=== PATIENT | male | born 1955 | race Caucasian/White ===

== ENCOUNTER 2018-10-20 14:55 | Inpatient (IN) | payer MEDICARE ==
[2018-10-20] MEDS ORDERED: Acetaminophen 325 MG TAB PO PRN (22:10)
[2018-10-20] MEDS ORDERED: Bisacodyl 5 MG TAB PO PRN (22:10)
[2018-10-20] MEDS ORDERED: Dextrose 5% in Water 1,000 ML IV PRN (22:12)
[2018-10-20] MEDS ORDERED: Dextrose 50% Abboject 50 ML SYRINGE SLOW IVP PRN (22:12)
[2018-10-20] MEDS ORDERED: Senokot 8.6 MG TAB PO PRN (22:14)
[2018-10-21 05:04] LABS: #Basophils 0.1 thou/uL (0.0-0.2); #Eosinphils 0.3 thou/uL (0.0-0.7); #Lymphocytes 1.3 thou/uL (1.20-3.40); #Monocytes 0.7 thou/uL (0.11-0.59); #Neutrophils 4.6 thou/uL (1.40-6.50); %Basophils 1.3 % (0.0-1.0); %Eosinophils 3.7 % (0.0-10.0); %Lymphocytes 18.2 % (21.0-51.0); %Monocytes 9.5 % (0.0-10.0); %Neutrophils 67.2 % (42.0-75.0); Hemoglobin 8.9 g/dL (14.0-18.0); Mean Corpuscular HGB CONC 33.6 g/dL (32.0-36.0); Mean Corpuscular Hemoglobin 28.7 pg (27.0-31.0); Mean Corpuscular Volume 85.6 fL (78.0-98.0); Mean Platelet Volume 9.8 fL (7.4-10.4); Platelet Count 210 thou/uL (130-400); RBC Distribution Width 13.8 % (11.5-14.5); White Blood Cell (WBC) Count 6.8 thou/uL (4.8-10.8)
[2018-10-21 05:28] LABS: ALT (SGPT) 22 U/L (8-55); AST (SGOT) 31 U/L (5-34); Albumin 3.1 g/dL (3.4-4.8); Alkaline Phosphatase 197 U/L (40-150); Anion Gap 12 mmol/L (10-20); BUN (Urea Nitrogen) 14 mg/dL (8.4-25.7); Bilirubin, Total 0.7 mg/dL (0.2-1.2); Calc. Creatinine Clearance 57 mL/min (70-130); Carbon Dioxide 24 mmol/L (23-31); Chloride 110 mmol/L (98-107); Estimated GFR-MDRD 48; Glucose 92 mg/dL (80-115); Potassium 3.1 mmol/L (3.5-5.1); Protein, Total 6.1 g/dL (5.8-8.1); Sodium 143 mmol/L (136-145)
[2018-10-21] MEDS: Losartan Potassium 50 MG TAB PO SCH (09:47)
[2018-10-21] MEDS: Aspirin 81 mg Enteric Coated Tablet PO SCH (09:47)
[2018-10-21] MEDS: Clopidogrel Bisulfate 75 MG TAB PO SCH (09:47)
[2018-10-21] MEDS: metFORMIN XR 500 MG TAB PO SCH ×2 (09:47→17:36)
[2018-10-21] MEDS: Amlodipine 5 MG TAB PO SCH (09:47)
[2018-10-21] MEDS: Insulin Regular 300 UNITS/3 ML VIAL SC PRN (12:24)
[2018-10-21] MEDS: Atorvastatin Calcium 40 MG TAB PO SCH (21:00)
[2018-10-22] MEDS: metFORMIN XR 500 MG TAB PO SCH ×2 (08:18→18:11)
[2018-10-22] MEDS: Losartan Potassium 50 MG TAB PO SCH (08:18)
[2018-10-22] MEDS: Amlodipine 5 MG TAB PO SCH (08:18)
[2018-10-22] MEDS: Clopidogrel Bisulfate 75 MG TAB PO SCH (08:21)
[2018-10-22] MEDS: Aspirin 81 mg Enteric Coated Tablet PO SCH (08:21)
[2018-10-22] MEDS: Insulin Regular 300 UNITS/3 ML VIAL SC PRN (18:12)
[2018-10-22] MEDS ORDERED: Amlodipine 5 MG TAB PO SCH (18:45)
[2018-10-22] MEDS: Atorvastatin Calcium 40 MG TAB PO SCH (20:08)
[2018-10-23] MEDS: Amlodipine 5 MG TAB PO SCH ×2 (08:35→20:37)
[2018-10-23] MEDS: Losartan Potassium 50 MG TAB PO SCH (08:35)
[2018-10-23] MEDS: metFORMIN XR 500 MG TAB PO SCH (08:37)
[2018-10-23] MEDS: Clopidogrel Bisulfate 75 MG TAB PO SCH (08:37)
[2018-10-23] MEDS: Atorvastatin Calcium 40 MG TAB PO SCH (20:37)
--- NOTE | 2018-10-24 07:51 | HP ---
REASON FOR ADMISSION: Physical therapy, occupational therapy, and speech therapy required for recent CVA. HISTORY OF PRESENT ILLNESS: The patient is a 63-year-old white male, who was admitted to [facility] on 10/17/2018 after having a second CVA within the last approximately 30 days. He began having slurred speech, difficulty findings words, and confusion. In the emergency room, he was seen and evaluated, and diagnosed with new onset second CVA. The patient had a full workup in his previous hospitalization for causes of the CVA and was on aspirin. When he presented on his most recent admission, an MRI of the brain was performed, which showed an acute left frontal CVA consistent with his findings. He was seen by Neurology, who recommended the patient start on Plavix in addition to his baby aspirin and continue physical therapy, occupational therapy, and speech therapy. The patient did have some continued dysarthria and some difficulty with swallowing requiring further speech therapy. PAST MEDICAL HISTORY: 1. Recent CVA. 2. Diabetes mellitus, controlled. 3. Hypertension. 4. Deconditioning. 5. Global weakness. PAST SURGICAL HISTORY: No significant past surgical history. REVIEW OF SYSTEMS: The patient presently says he is having increased strength. No fevers, chills, or night sweats. No nausea, vomiting, or diarrhea. Appetite is good. He does report some coughing with swallowing clear liquids and he has been placed on a thickened liquid diet. The patient denies any URI like symptoms. No chest pain or shortness of breath. No dysuria, hematuria, or change in urinary frequency. No recent weight loss or weight gain. The patient denies any depression. PHYSICAL EXAMINATION: GENERAL: White male, alert and oriented x3, in obvious distress, obvious dysarthria during exam. VITAL SIGNS: Blood pressure 168/88, respiratory rate 16, pulse 82. HEENT: Atraumatic and normocephalic. Sclerae intact. Pupils are equal, round, and reactive to light and accommodation. Oropharynx, mucous membranes moist. No exudates, discharge, or lesions. NECK: Supple. No masses palpated. CHEST: Clear to auscultation bilaterally. HEART: Regular rate and rhythm. ABDOMEN: Soft, nontender, and nondistended. No masses were palpated. EXTREMITIES: Show no cyanosis, clubbing, or edema. NEUROLOGIC: The patient did have dysarthria, but was able to understand all speech, slight expressive aphasia. Gag reflex was intact. The patient's mood was appropriate. ASSESSMENT AND PLAN: 1. Status post recent frontal cerebrovascular accident with dysarthria and some swallowing difficulties. The patient will be admitted to swing bed therapy at [facility]. Continue physical therapy, occupational therapy, and speech therapy with aspiration precautions. 2. Diabetes mellitus. We will continue the patient on his metformin with Accu-Cheks q.a.c. and at bedtime. 3. Hypertension. His blood pressure has been slightly high, may try adjusting his medications if needed. 4. Disposition. Hopefully, the patient will have approximately 10 to 14 days of physical therapy, occupational therapy, and speech therapy. 5. His plan is to be discharged to home. He does have a son, who lives in the area. Job ID: [id number]
[2018-10-24] MEDS: Losartan Potassium 50 MG TAB PO SCH (08:31)
[2018-10-24] MEDS: Clopidogrel Bisulfate 75 MG TAB PO SCH (08:31)
[2018-10-24] MEDS: metFORMIN XR 500 MG TAB PO SCH (08:32)
[2018-10-24] MEDS: Amlodipine 5 MG TAB PO SCH ×2 (08:32→20:37)
[2018-10-24] MEDS: Insulin Regular 300 UNITS/3 ML VIAL SC PRN (13:16)
[2018-10-24] MEDS: Atorvastatin Calcium 40 MG TAB PO SCH (20:37)
[2018-10-25] MEDS: Losartan Potassium 50 MG TAB PO SCH (08:06)
[2018-10-25] MEDS: metFORMIN XR 500 MG TAB PO SCH (08:07)
[2018-10-25] MEDS: Clopidogrel Bisulfate 75 MG TAB PO SCH (08:07)
[2018-10-25] MEDS: Amlodipine 5 MG TAB PO SCH ×2 (08:07→20:56)
[2018-10-25] MEDS: Insulin Regular 300 UNITS/3 ML VIAL SC PRN (12:36)
[2018-10-25] MEDS: Atorvastatin Calcium 40 MG TAB PO SCH (21:02)
[2018-10-26 05:30] LABS: #Basophils 0.1 thou/uL (0.0-0.2); #Eosinphils 0.3 thou/uL (0.0-0.7); #Lymphocytes 1.6 thou/uL (1.20-3.40); #Monocytes 0.8 thou/uL (0.11-0.59); #Neutrophils 4.4 thou/uL (1.40-6.50); %Eosinophils 4.3 % (0.0-10.0); %Monocytes 10.7 % (0.0-10.0); Hemoglobin 8.9 g/dL (14.0-18.0); Mean Corpuscular HGB CONC 33.5 g/dL (32.0-36.0); Mean Corpuscular Hemoglobin 28.5 pg (27.0-31.0); Mean Platelet Volume 10.2 fL (7.4-10.4); Platelet Count 214 thou/uL (130-400); RBC Distribution Width 12.8 % (11.5-14.5); Red Blood Cell (RBC) Count 3.12 mill/uL (4.70-6.10); White Blood Cell (WBC) Count 7.2 thou/uL (4.8-10.8)
[2018-10-26 05:41] LABS: ALT (SGPT) 18 U/L (8-55); AST (SGOT) 27 U/L (5-34); Albumin 3.1 g/dL (3.4-4.8); Alkaline Phosphatase 217 U/L (40-150); Anion Gap 12 mmol/L (10-20); BUN (Urea Nitrogen) 16 mg/dL (8.4-25.7); Bilirubin, Total 0.6 mg/dL (0.2-1.2); Calc. Creatinine Clearance 54 mL/min (70-130); Calcium 9.2 mg/dL (7.8-10.44); Carbon Dioxide 27 mmol/L (23-31); Chloride 107 mmol/L (98-107); Estimated GFR-MDRD 45; Globulin 3.1 g/dL (2.4-3.5); Glucose 112 mg/dL (80-115); Protein, Total 6.2 g/dL (5.8-8.1); Sodium 143 mmol/L (136-145)
[2018-10-26] MEDS: Clopidogrel Bisulfate 75 MG TAB PO SCH (08:40)
[2018-10-26] MEDS: Amlodipine 5 MG TAB PO SCH ×2 (08:40→22:24)
[2018-10-26] MEDS: Losartan Potassium 50 MG TAB PO SCH (08:41)
[2018-10-26] MEDS: metFORMIN XR 500 MG TAB PO SCH (08:41)
[2018-10-26] MEDS: Insulin Regular 300 UNITS/3 ML VIAL SC PRN ×2 (14:29→19:14)
[2018-10-26] MEDS: Atorvastatin Calcium 40 MG TAB PO SCH (22:24)
[2018-10-27] MEDS: Amlodipine 5 MG TAB PO SCH ×2 (08:23→21:07)
[2018-10-27] MEDS: metFORMIN XR 500 MG TAB PO SCH (08:24)
[2018-10-27] MEDS: Losartan Potassium 50 MG TAB PO SCH (08:24)
[2018-10-27] MEDS: Clopidogrel Bisulfate 75 MG TAB PO SCH (08:24)
[2018-10-27] MEDS: Insulin Regular 300 UNITS/3 ML VIAL SC PRN ×3 (13:38→21:06)
[2018-10-27] MEDS: Atorvastatin Calcium 40 MG TAB PO SCH (21:08)
[2018-10-28] MEDS: Losartan Potassium 50 MG TAB PO SCH (08:24)
[2018-10-28] MEDS: Clopidogrel Bisulfate 75 MG TAB PO SCH (08:24)
[2018-10-28] MEDS: metFORMIN XR 500 MG TAB PO SCH (08:24)
[2018-10-28] MEDS: Amlodipine 5 MG TAB PO SCH ×2 (08:25→20:59)
[2018-10-28] MEDS: Insulin Regular 300 UNITS/3 ML VIAL SC PRN ×2 (12:31→17:58)
[2018-10-28] MEDS: Atorvastatin Calcium 40 MG TAB PO SCH (20:59)
[2018-10-29] MEDS: metFORMIN XR 500 MG TAB PO SCH (09:07)
[2018-10-29] MEDS: Losartan Potassium 50 MG TAB PO SCH (09:08)
[2018-10-29] MEDS: Amlodipine 5 MG TAB PO SCH ×2 (09:08→20:51)
[2018-10-29] MEDS: Clopidogrel Bisulfate 75 MG TAB PO SCH (09:08)
[2018-10-29] MEDS: Insulin Regular 300 UNITS/3 ML VIAL SC PRN ×2 (13:08→20:54)
[2018-10-29] MEDS: Atorvastatin Calcium 40 MG TAB PO SCH (20:51)
[2018-10-30] MEDS: Losartan Potassium 50 MG TAB PO SCH (08:40)
[2018-10-30] MEDS: Clopidogrel Bisulfate 75 MG TAB PO SCH (08:41)
[2018-10-30] MEDS: Amlodipine 5 MG TAB PO SCH ×2 (08:41→21:26)
[2018-10-30] MEDS: metFORMIN XR 500 MG TAB PO SCH (08:42)
[2018-10-30] MEDS: Insulin Regular 300 UNITS/3 ML VIAL SC PRN ×3 (08:43→18:09)
[2018-10-30] MEDS: Atorvastatin Calcium 40 MG TAB PO SCH (21:26)
[2018-10-31] MEDS: metFORMIN XR 500 MG TAB PO SCH (10:48)
[2018-10-31] MEDS: Clopidogrel Bisulfate 75 MG TAB PO SCH (10:49)
[2018-10-31] MEDS: Amlodipine 5 MG TAB PO SCH ×2 (10:49→20:31)
[2018-10-31] MEDS: Losartan Potassium 50 MG TAB PO SCH (10:50)
[2018-10-31] MEDS: Atorvastatin Calcium 40 MG TAB PO SCH (20:31)
[2018-10-31] MEDS: Insulin Regular 300 UNITS/3 ML VIAL SC PRN (20:41)
[2018-11-01] MEDS: metFORMIN XR 500 MG TAB PO SCH (09:56)
[2018-11-01] MEDS: Amlodipine 5 MG TAB PO SCH ×2 (09:56→21:10)
[2018-11-01] MEDS: Losartan Potassium 50 MG TAB PO SCH (09:57)
[2018-11-01] MEDS: Clopidogrel Bisulfate 75 MG TAB PO SCH (09:57)
[2018-11-01 13:11] VITALS: BMI 24.3
[2018-11-01] MEDS: Insulin Regular 300 UNITS/3 ML VIAL SC PRN (17:08)
[2018-11-01] MEDS: Atorvastatin Calcium 40 MG TAB PO SCH (21:12)
[2018-11-02] MEDS: metFORMIN XR 500 MG TAB PO SCH (09:17)
[2018-11-02] MEDS: Losartan Potassium 50 MG TAB PO SCH (09:18)
[2018-11-02] MEDS: Clopidogrel Bisulfate 75 MG TAB PO SCH (09:19)
[2018-11-02] MEDS: Amlodipine 5 MG TAB PO SCH ×2 (09:20→20:52)
[2018-11-02] MEDS: Insulin Regular 300 UNITS/3 ML VIAL SC PRN ×2 (13:05→18:17)
[2018-11-02] MEDS: Atorvastatin Calcium 40 MG TAB PO SCH (20:52)
[2018-11-03] MEDS: metFORMIN XR 500 MG TAB PO SCH (09:08)
[2018-11-03] MEDS: Amlodipine 5 MG TAB PO SCH ×2 (09:09→21:38)
[2018-11-03] MEDS: Losartan Potassium 50 MG TAB PO SCH (09:09)
[2018-11-03] MEDS: Clopidogrel Bisulfate 75 MG TAB PO SCH (09:09)
[2018-11-03] MEDS: Insulin Regular 300 UNITS/3 ML VIAL SC PRN ×3 (12:06→21:43)
[2018-11-03] MEDS: Atorvastatin Calcium 40 MG TAB PO SCH (21:38)
[2018-11-04 06:50] VITALS: BP 155/79; TEMP 98.2
[2018-11-04] MEDS: Losartan Potassium 50 MG TAB PO SCH (08:54)
[2018-11-04] MEDS: Clopidogrel Bisulfate 75 MG TAB PO SCH (08:54)
[2018-11-04] MEDS: Amlodipine 5 MG TAB PO SCH (08:54)
[2018-11-04] MEDS: metFORMIN XR 500 MG TAB PO SCH (08:54)
[2018-11-04] MEDS: Insulin Regular 300 UNITS/3 ML VIAL SC PRN (13:57)
== END 2018-11-04 17:00 | disposition home health service (06) | DRG 57 ==
LOC: BURMED 19:05
PROVIDERS: ADMIT Family Medicine; ATTEND Family Medicine
DX: I69.322 Dysarthria following cerebral infarction (principal); G81.90 Hemiplegia, unspecified affecting unspecified side; I69.391 Dysphagia following cerebral infarction; R13.10 Dysphagia, unspecified; I10 Essential (primary) hypertension; E11.9 Type 2 diabetes mellitus without complications; Z79.82 Long term (current) use of aspirin; Z79.84 Long term (current) use of oral hypoglycemic drugs
CPT/HCPCS: 36415; 36416; 80053; 85025; 87324; 87449; 90471; 90686; G0008; G8978-GP-CK; G8979-GP-CI; G8987-GO-CL; G8988-GO-CI; J1815

== ENCOUNTER 2018-12-22 09:26 | Emergency (ER) | payer MEDICARE ==
[2018-12-22 10:12] LABS: #Basophils 0.1 thou/uL (0.0-0.2); #Eosinphils 0.2 thou/uL (0.0-0.7); #Lymphocytes 1.1 thou/uL (1.20-3.40); #Monocytes 0.6 thou/uL (0.11-0.59); #Neutrophils 5.6 thou/uL (1.40-6.50); %Basophils 1.4 % (0.0-1.0); %Eosinophils 2.3 % (0.0-10.0); %Monocytes 7.7 % (0.0-10.0); %Neutrophils 73.5 % (42.0-75.0); Hemoglobin 7.7 g/dL (14.0-18.0); Mean Corpuscular HGB CONC 33.3 g/dL (32.0-36.0); Mean Corpuscular Hemoglobin 27.5 pg (27.0-31.0); Mean Corpuscular Volume 82.8 fL (78.0-98.0); Mean Platelet Volume 7.1 fL (7.4-10.4); Platelet Count 246 thou/uL (130-400); RBC Distribution Width 13.3 % (11.5-14.5); Red Blood Cell (RBC) Count 2.79 mill/uL (4.70-6.10); White Blood Cell (WBC) Count 7.6 thou/uL (4.8-10.8)
[2018-12-22 10:29] LABS: ALT (SGPT) 13 U/L (8-55); AST (SGOT) 21 U/L (5-34); Albumin 3.3 g/dL (3.4-4.8); Alkaline Phosphatase 164 U/L (40-150); Anion Gap 13 mmol/L (10-20); BUN (Urea Nitrogen) 15 mg/dL (8.4-25.7); Bilirubin, Total 0.7 mg/dL (0.2-1.2); Calc. Creatinine Clearance 0 mL/min (70-130); Calcium 9.1 mg/dL (7.8-10.44); Carbon Dioxide 27 mmol/L (23-31); Chloride 105 mmol/L (98-107); Estimated GFR-MDRD 41; Globulin 3.2 g/dL (2.4-3.5); Glucose 152 mg/dL (80-115); Potassium 3.1 mmol/L (3.5-5.1); Protein, Total 6.5 g/dL (5.8-8.1); Sodium 142 mmol/L (136-145)
[2018-12-22] MEDS ORDERED: Potassium Chloride 20 MEQ/100 ML PREMIX BAG ONE (10:45)
[2018-12-22] MEDS ORDERED: Potassium Chloride 20 MEQ TAB ONE (10:45)
== END 2018-12-22 10:59 | disposition home or self-care (01) ==
LOC: BURERS 09:26
DX: D64.9 Anemia, unspecified (principal); E11.9 Type 2 diabetes mellitus without complications; E78.5 Hyperlipidemia, unspecified; I10 Essential (primary) hypertension; Z86.73 Personal history of transient ischemic attack (TIA), and cerebral infarction without residual deficits; F17.220 Nicotine dependence, chewing tobacco, uncomplicated; Z79.84 Long term (current) use of oral hypoglycemic drugs; Z79.82 Long term (current) use of aspirin; Z79.899 Other long term (current) drug therapy
CPT/HCPCS: 36415; 80053; 82274; 84443; 84484; 85025; 86850; 86900; 86901; 99284; J3480

== ENCOUNTER 2019-02-01 14:30 | Emergency (ER) | payer MEDICARE ==
[2019-02-01 15:50] LABS: ALT (SGPT) 13 U/L (8-55); AST (SGOT) 23 U/L (5-34); Albumin 3.5 g/dL (3.4-4.8); Alkaline Phosphatase 173 U/L (40-150); Anion Gap 14 mmol/L (10-20); BUN (Urea Nitrogen) 15 mg/dL (8.4-25.7); Bilirubin, Total 0.7 mg/dL (0.2-1.2); Calc. Creatinine Clearance 0 mL/min (70-130); Calcium 8.9 mg/dL (7.8-10.44); Carbon Dioxide 26 mmol/L (23-31); Chloride 105 mmol/L (98-107); Estimated GFR-MDRD 44; Globulin 3.4 g/dL (2.4-3.5); Glucose 110 mg/dL (80-115); Potassium 3.2 mmol/L (3.5-5.1); Protein, Total 6.9 g/dL (5.8-8.1); Sodium 142 mmol/L (136-145)
[2019-02-01 15:51] LABS: Prothrombin Time 13.3 SEC (12.0-14.7)
[2019-02-01 16:07] LABS: #Basophils 0.1 thou/uL (0.0-0.2); #Eosinphils 0.1 thou/uL (0.0-0.7); #Lymphocytes 1.2 thou/uL (1.20-3.40); #Monocytes 0.7 thou/uL (0.11-0.59); #Neutrophils 5.4 thou/uL (1.40-6.50); %Basophils 1.5 % (0.0-1.0); %Eosinophils 1.2 % (0.0-10.0); %Lymphocytes 15.6 % (21.0-51.0); %Monocytes 9.1 % (0.0-10.0); %Neutrophils 72.6 % (42.0-75.0); Hemoglobin 6.8 g/dL (14.0-18.0); Hypochromia SLIGHT = 6-15 cells (100X) (0-5/hpf); MDiff Complete? YES; Mean Corpuscular HGB CONC 29.6 g/dL (32.0-36.0); Mean Corpuscular Hemoglobin 23.7 pg (27.0-31.0); Mean Corpuscular Volume 80.2 fL (78.0-98.0); Mean Platelet Volume 7.7 fL (7.4-10.4); Microcytosis SLIGHT = 6-15 cells (100X) (0-5/hpf); Platelet Count 197 thou/uL (130-400); RBC Distribution Width 15.1 % (11.5-14.5); Red Blood Cell (RBC) Count 2.85 mill/uL (4.70-6.10); White Blood Cell (WBC) Count 7.4 thou/uL (4.8-10.8)
[2019-02-01 18:34] LABS: Hemoglobin 7.7 g/dL (14.0-18.0)
== END 2019-02-01 18:53 | disposition home or self-care (01) ==
LOC: BURERS 14:30
DX: D64.9 Anemia, unspecified (principal); E11.9 Type 2 diabetes mellitus without complications; E78.5 Hyperlipidemia, unspecified; I10 Essential (primary) hypertension; Z86.73 Personal history of transient ischemic attack (TIA), and cerebral infarction without residual deficits; F17.220 Nicotine dependence, chewing tobacco, uncomplicated; Z79.899 Other long term (current) drug therapy; Z79.84 Long term (current) use of oral hypoglycemic drugs; Z79.82 Long term (current) use of aspirin
CPT/HCPCS: 36430; 85014; 85018; 85610; 85730; 86850; 86900; 86901; 86920; 86922; P9016; 80053; 84443; 85025; 99284

== ENCOUNTER 2019-03-27 13:01 | Emergency (ER) | payer MEDICARE ==
[2019-03-27 13:47] LABS: PTT 30.9 SEC (22.9-36.1); Prothrombin Time 13.7 SEC (12.0-14.7)
[2019-03-27 13:52] LABS: #Basophils 0.1 thou/uL (0.0-0.2); #Eosinphils 0.1 thou/uL (0.0-0.7); #Lymphocytes 2.1 thou/uL (1.20-3.40); #Monocytes 0.6 thou/uL (0.11-0.59); #Neutrophils 5.5 thou/uL (1.40-6.50); %Basophils 1.7 % (0.0-1.0); %Eosinophils 1.8 % (0.0-10.0); %Monocytes 7.3 % (0.0-10.0); %Neutrophils 64.3 % (42.0-75.0); Hemoglobin 8.1 g/dL (14.0-18.0); MDiff Complete? YES; Macrocytosis SLIGHT = 6-15 cells (100X) (0-5/hpf); Mean Corpuscular HGB CONC 30.5 g/dL (32.0-36.0); Mean Corpuscular Hemoglobin 28.1 pg (27.0-31.0); Mean Corpuscular Volume 92.3 fL (78.0-98.0); Mean Platelet Volume 8.8 fL (7.4-10.4); Microcytosis SLIGHT = 6-15 cells (100X) (0-5/hpf); Platelet Count 332 thou/uL (130-400); RBC Distribution Width 19.4 % (11.5-14.5); White Blood Cell (WBC) Count 8.5 thou/uL (4.8-10.8)
[2019-03-27 13:57] LABS: ALT (SGPT) 16 U/L (8-55); AST (SGOT) 22 U/L (5-34); Albumin 3.6 g/dL (3.4-4.8); Alkaline Phosphatase 164 U/L (40-150); Anion Gap 14 mmol/L (10-20); BUN (Urea Nitrogen) 24 mg/dL (8.4-25.7); Bilirubin, Total 0.6 mg/dL (0.2-1.2); Calc. Creatinine Clearance 0 mL/min (70-130); Calcium 9.5 mg/dL (7.8-10.44); Carbon Dioxide 23 mmol/L (23-31); Chloride 107 mmol/L (98-107); Estimated GFR-MDRD 33; Globulin 3.2 g/dL (2.4-3.5); Glucose 140 mg/dL (80-115); Potassium 4.6 mmol/L (3.5-5.1); Protein, Total 6.8 g/dL (5.8-8.1); Sodium 139 mmol/L (136-145)
--- NOTE | 2019-03-27 19:58 | RAD ---
PELVIS ONE VIEW: Date: 03-27-19 FINDINGS: No fracture was appreciated. The hips appear intact, as do the remaining portions of the bony pelvis. There is slight joint space narrowing on the left compared to the right. The SI joints were reasonab ly symmetrical. Arterial calcifications are present. IMPRESSION: No acute bony findings. POS: HOME
--- NOTE | 2019-03-27 20:07 | CT ---
CT BRAIN WITHOUT CONTRAST: Date: 03-27-19 Comparison: 03-10-19 FINDINGS: There has been no change in the interval. The ventricles are normal in size for age and atrophy. Ther e are profound chronic ischemic changes throughout the deep white matter bilaterally. There is eviden ce of an old central pontine infarct. Small lacunar infarct is seen in the region of the right internal communications intern al capsule and basal ganglia. No intracranial bleeding, mass, or sign of acute stroke was appreciated . Small acute strokes would be missed in this patient. There is no extraaxial hematoma. The skull onur ears intact and the visible paranasal sinuses and mastoid air cells are clear. IMPRESSION: Chronic ischemic changes and old stroke but no acute intracranial findings. Findings discussed with Dr. Amaya at 1336 on 03-27-19. POS: HOME
== END 2019-03-27 15:05 | disposition home or self-care (01) ==
LOC: BURERS 13:01
DX: M62.81 Muscle weakness (generalized) (principal); E11.9 Type 2 diabetes mellitus without complications; E78.5 Hyperlipidemia, unspecified; I10 Essential (primary) hypertension; R29.6 Repeated falls; Z86.73 Personal history of transient ischemic attack (TIA), and cerebral infarction without residual deficits; Z79.899 Other long term (current) drug therapy; Z79.82 Long term (current) use of aspirin; Z79.84 Long term (current) use of oral hypoglycemic drugs
CPT/HCPCS: 36415; 70450; 72170; 80053; 83605; 84484; 85025; 85610; 85730; 86850; 86900; 86901; 93005

== ENCOUNTER 2019-04-07 09:49 | Outpatient (CLI) | payer MEDICARE ==
--- NOTE | 2019-04-07 21:51 | CT ---
CT OF THE CHEST WITHOUT CONTRAST: 04/07/19 Comparison is made with an 10/18/18 study. Scans were done without contrast due to decreased renal fu nction. The mediastinum showed no mass or adenopathy. Calcifications are seen in the patient's aorta. There is no pericardial effusion. The lungs are generally clear. There is a small reticulonodular area in the superior portion of the l eft lower lobe as before. It has not really changed in the interval. There is also a smaller similar area in the lateral aspect of the right upper lobe. It also is the same in appearance. No effusions a re seen. An old healed rib fracture was noted on the left. This was present before. IMPRESSION: 1. No acute thoracic findings. 2. Minimal streaky reticular areas in the periphery of the right upper lobe and in the superior part of the left lower lobe. These are virtually unchanged in appearance since the prior scan and are presumably scarring. POS: HOME
--- NOTE | 2019-04-07 21:56 | CT ---
CT ABDOMEN AND PELVIS WITHOUT CONTRAST 04/07/[address] of the abdomen and pelvis was done without IV contrast. Axial slices were acquired, then co juan and sagittal reconstructions were done. The liver, spleen, pancreas, adrenal glands and kidneys showed no acute findings within the limitatio ns of a noncontrast scan. It is difficult to evaluate the gallbladder as it is slightly contracted. T his would be better seen on ultrasound. Some calcifications are seen in the aorta but there is no ane urysm. The stomach is moderately distended with fluid and the duodenum seems large as well. Looking at a [address] while slightly more prominent than before, these areas were larger than normal previously. Ther e is no distended bowel elsewhere to suggest obstruction. The appendix appears normal. No free air or free fluid was seen. CT of the pelvis showed no pelvic masses, fluid collections, or inflammatory changes. There is some degree of central canal stenosis at L2-L3, L3-L4 and L4-L5 in the lumbar spine. IMPRESSION: 1. Moderate distention of stomach and duodenal bulb. Nevertheless, it was somewhat dilated on an older CT. Correlate with clinical symptoms and consider endoscopy if symptoms dictate the need. 2. No acute findings otherwise. POS: HOME
== END 2019-04-07 09:50 | disposition home or self-care (01) ==
LOC: BURCT 09:49
PROVIDERS: ATTEND Family Medicine
DX: R63.4 Abnormal weight loss (principal); K31.89 Other diseases of stomach and duodenum
CPT/HCPCS: 71250; 74176

== ENCOUNTER 2019-05-01 14:25 | Emergency (ER) | payer MEDICARE | END 2019-05-01 15:30 | disposition home or self-care (01) | LOC: BURERS 14:25 | DX: I10 Essential (primary) hypertension (principal); E11.9 Type 2 diabetes mellitus without complications; E78.5 Hyperlipidemia, unspecified; Z86.73 Personal history of transient ischemic attack (TIA), and cerebral infarction without residual deficits; Z79.82 Long term (current) use of aspirin; Z79.899 Other long term (current) drug therapy | CPT/HCPCS: 99283 ==

== ENCOUNTER 2019-06-27 15:13 | Emergency (ER) | payer MEDICARE ==
[2019-06-27 15:46] LABS: #Basophils 0.1 thou/uL (0.0-0.2); #Eosinphils 0.1 thou/uL (0.0-0.7); #Lymphocytes 1.1 thou/uL (1.20-3.40); #Monocytes 0.5 thou/uL (0.11-0.59); #Neutrophils 4.1 thou/uL (1.40-6.50); %Basophils 1.4 % (0.0-1.0); %Lymphocytes 18.1 % (21.0-51.0); %Monocytes 8.8 % (0.0-10.0); %Neutrophils 69.7 % (42.0-75.0); Hemoglobin 10.5 g/dL (14.0-18.0); Mean Corpuscular HGB CONC 32.3 g/dL (32.0-36.0); Mean Corpuscular Hemoglobin 30.4 pg (27.0-31.0); Mean Corpuscular Volume 94.1 fL (78.0-98.0); Mean Platelet Volume 8.3 fL (7.4-10.4); Platelet Count 196 thou/uL (130-400); RBC Distribution Width 13.6 % (11.5-14.5); Red Blood Cell (RBC) Count 3.44 mill/uL (4.70-6.10); White Blood Cell (WBC) Count 5.9 thou/uL (4.8-10.8)
[2019-06-27 15:51] LABS: INR-International Normal Ratio 1.1; PTT 28.5 SEC (22.9-36.1); Prothrombin Time 13.7 SEC (12.0-14.7)
[2019-06-27 16:01] LABS: ALT (SGPT) 55 U/L (8-55); AST (SGOT) 46 U/L (5-34); Albumin 3.2 g/dL (3.4-4.8); Alkaline Phosphatase 175 U/L (40-150); Anion Gap 11 mmol/L (10-20); BUN (Urea Nitrogen) 36 mg/dL (8.4-25.7); Bilirubin, Total 0.6 mg/dL (0.2-1.2); Calc. Creatinine Clearance 0 mL/min (70-130); Calcium 9.1 mg/dL (7.8-10.44); Carbon Dioxide 23 mmol/L (23-31); Chloride 112 mmol/L (98-107); Estimated GFR-MDRD 33; Globulin 2.9 g/dL (2.4-3.5); Glucose 107 mg/dL (80-115); Potassium 4.3 mmol/L (3.5-5.1); Protein, Total 6.1 g/dL (5.8-8.1); Sodium 142 mmol/L (136-145)
[2019-06-27 16:19] LABS: CKMB 0.8 ng/mL (0-6.6)
--- NOTE | 2019-06-27 17:11 | CT ---
CT BRAIN WITHOUT CONTRAST: Date: 06/27/19 Comparison made with the 03/10/19 CT exam. Diffuse chronic ischemic changes are seen throughout the deep white matter. Small acute strokes would be masked by these changes, but currently there are no findings strongly suggestive of an acute stro ke. The ventricles are normal in size for age and atrophy. The amount of atrophy present is somewhat advanced for age. An old pontine infarct is seen just to the right of midline. No focal posterior fos sa abnormality was seen otherwise. No intracranial bleeding or mass was apparent. The skull appears i ntact and the visible paranasal sinuses are clear. IMPRESSION: Chronic ischemic changes and old pontine infarct. No definite acute intracranial findings. If neurolo gical changes persist, then MRI would be more sensitive at showing any acute injury. POS: HOME
== END 2019-06-27 18:02 | disposition short-term general hospital (02) ==
LOC: BURERS 15:13
DX: R55 Syncope and collapse (principal); E78.5 Hyperlipidemia, unspecified; E11.9 Type 2 diabetes mellitus without complications; I10 Essential (primary) hypertension; Z79.899 Other long term (current) drug therapy; Z86.73 Personal history of transient ischemic attack (TIA), and cerebral infarction without residual deficits; Z79.82 Long term (current) use of aspirin
CPT/HCPCS: 70450; 80053; 82553; 84484; 85025; 85610; 85730; 93005

== ENCOUNTER 2019-06-30 13:55 | Inpatient (IN) | payer MEDICARE ==
[2019-07-01 18:34] VITALS: BMI 20.7
[2019-07-01] MEDS ORDERED: Losartan Potassium 50 MG TAB PO SCH (23:00)
[2019-07-01] MEDS ORDERED: Atorvastatin Calcium 40 MG TAB PO SCH (23:00)
[2019-07-02] MEDS: Multivitamin W/ Minerals 1 TAB PO SCH (09:04)
[2019-07-02] MEDS: Aspirin 325 mg Enteric Coated Tablet PO SCH (09:04)
[2019-07-02] MEDS: Ferrous Sulfate 325 MG TAB PO SCH (09:04)
[2019-07-02] MEDS: Potassium Chloride 20 MEQ TAB PO SCH (09:04)
[2019-07-02] MEDS: Clopidogrel Bisulfate 75 MG TAB PO SCH (09:05)
[2019-07-02] MEDS ORDERED: Acetaminophen 325 MG TAB PO PRN (10:53)
[2019-07-02] MEDS ORDERED: Senokot S 8.6-50 MG TAB PO PRN (10:53)
--- NOTE | 2019-07-02 13:23 | HP ---
REASON FOR TRANSFER: Status post CVA, which required therapy. HISTORY OF PRESENT ILLNESS: The patient is a 63-year-old white male, who presented to [facility] and then transferred to [facility] in [place] on 06/27/2019 after having increased left-sided weakness on top of his previous residual left-sided weakness as well as fatigue and confusion with several falls. The patient had a change in mental status and thus was admitted to the hospital in [place]. During his admission, he was consulted by neurologist, Dr. Cerna by Telemedicine and was seen by the inpatient hospitalist service. The patient underwent bilateral carotid ultrasound, which showed no significant stenosis as well as echocardiogram, which showed diastolic dysfunction with ejection fraction of 50% to 60% and no other significant findings. The patient was found to have increased weakness. Workup showed no other interventions that were needed and his confusion did improve with IV hydration and his blood pressure was controlled. Due to the patient's increased weakness in his left upper and lower extremity and his inability to transfer and ambulate safely, he was deemed appropriate for transfer to [facility] for physical therapy and occupational therapy. PAST MEDICAL HISTORY: Significant for: 1. CVA with left-sided residual weakness. 2. Non-insulin diabetes mellitus, diet controlled. 3. Hyperlipidemia. 4. Hypertension. PAST SURGICAL HISTORY: Showed no significant past surgical history. FAMILY HISTORY: Showed no significant contributory family history. SOCIAL HISTORY: The patient is disabled, lives at home. Has a grown son, who lives in the area. He does chew tobacco, but no significant alcohol or social drug use. The patient at his baseline, had been transferring and ambulating occasionally with a walker or cane at home on his own. MEDICATIONS: Significant for: 1. Zoloft 25 mg daily. 2. Potassium chloride 20 mEq daily. 3. Multivitamins daily. 4. Losartan 100 mg q.h.s. 5. Aspirin 325 mg daily. 6. Plavix 75 mg daily. 7. Lipitor 40 mg p.o. q.h.s. REVIEW OF SYSTEMS: Other than above, the patient denies any fever or chills. No nausea. No vomiting. No diarrhea. No chest pain. No shortness of breath above his baseline. The patient denies any significant weight gain or weight loss. The patient does not report any increased depression. No visual changes reported by the patient. No significant increased pain and no rashes were reported by the patient as well. PHYSICAL EXAMINATION: GENERAL: White male with some mild dysarthria, in no obvious distress. Alert and oriented x3. VITAL SIGNS: Blood pressure was 160/82, respiratory rate was 16, pulse was 82, temperature 98.2, O2 saturation was 99% on room air. HEENT: Extraocular movements are intact. Pupils are equal, round, and reactive to light and accommodation. CHEST: Clear to auscultation bilaterally. NECK: Supple. No masses palpated. HEART: Regular rate and rhythm without murmurs, rubs, or gallops. ABDOMEN: Soft, nontender, nondistended. No masses are palpated. EXTREMITIES: Show range of motion of all extremities. NEUROLOGIC: Did show decreased motor strength with decreased hand flush tester of the left upper extremity compared to the right as well as decreased strength with range of motion of the left lower extremity compared to the right. SKIN: Warm and dry. No lesions were noted. PSYCHIATRIC: The patient had normal mood and behavior. ASSESSMENT AND PLAN: 1. Status post recent admission to [facility] for cerebrovascular accident with extension, left-sided deficits. The patient will be admitted to the swing bed status. We will obtain occupational and physical therapy. Speech therapy may be evaluated as needed. The patient will be on fall precautions. 2. Hypertension. We will watch the patient's blood pressure closely. This may be cause of his history of cerebrovascular accident and we will control his blood pressure as deemed appropriate. 3. Status post cerebrovascular accident as above. The patient will continue Plavix and aspirin as recommended by Neurology. 4. Deep venous thrombosis prophylaxis. The patient will continue SCDs. 5. Disposition. Expect at least 2 weeks stay. If the patient improves, he may be able to be discharged back to home. Otherwise, may have to consider long-term placement. 6. Diabetes mellitus. We will follow the patient's blood sugar to see if there is any need for medications. Job ID: [id number]
[2019-07-02] MEDS ORDERED: Atorvastatin Calcium 40 MG TAB PO SCH (21:00)
[2019-07-02] MEDS ORDERED: Non-Formulary Item 1 EACH (Losartan Potassium [Losartan Potassium] 100 MG) PO SCH (21:00)
[2019-07-02] MEDS: Atorvastatin Calcium 40 MG TAB PO SCH (22:04)
[2019-07-02] MEDS: Losartan Potassium 50 MG TAB PO SCH (22:04)
[2019-07-03] MEDS ORDERED: Potassium Chloride 20 MEQ TAB PO SCH (08:00)
[2019-07-03] MEDS: Multivitamin W/ Minerals 1 TAB PO SCH (08:08)
[2019-07-03] MEDS: Potassium Chloride 20 MEQ TAB PO SCH (08:09)
[2019-07-03] MEDS: Ferrous Sulfate 325 MG TAB PO SCH (08:10)
[2019-07-03] MEDS: Clopidogrel Bisulfate 75 MG TAB PO SCH (08:10)
[2019-07-03] MEDS: Aspirin 325 mg Enteric Coated Tablet PO SCH (08:10)
[2019-07-03] MEDS ORDERED: Non-Formulary Item 1 EACH (Ferrous Sulfate 325 MG) PO SCH (09:00)
[2019-07-03] MEDS ORDERED: Clopidogrel Bisulfate 75 MG TAB PO SCH (09:00)
[2019-07-03] MEDS ORDERED: Aspirin 325 mg Enteric Coated Tablet PO SCH (09:00)
[2019-07-03] MEDS: Atorvastatin Calcium 40 MG TAB PO SCH (22:11)
[2019-07-03] MEDS: Losartan Potassium 50 MG TAB PO SCH (22:12)
[2019-07-04] MEDS: Clopidogrel Bisulfate 75 MG TAB PO SCH (08:50)
[2019-07-04] MEDS: Multivitamin W/ Minerals 1 TAB PO SCH (08:51)
[2019-07-04] MEDS: Potassium Chloride 20 MEQ TAB PO SCH (08:51)
[2019-07-04] MEDS: Ferrous Sulfate 325 MG TAB PO SCH (08:51)
[2019-07-04] MEDS: Aspirin 325 mg Enteric Coated Tablet PO SCH (08:51)
[2019-07-04] MEDS: Losartan Potassium 50 MG TAB PO SCH (23:04)
[2019-07-04] MEDS: Atorvastatin Calcium 40 MG TAB PO SCH (23:04)
[2019-07-05] MEDS: Loperamide HCl 2 MG CAP PO PRN ×3 (00:54→05:17)
[2019-07-05] MEDS: Ferrous Sulfate 325 MG TAB PO SCH (09:04)
[2019-07-05] MEDS: Aspirin 325 mg Enteric Coated Tablet PO SCH (09:04)
[2019-07-05] MEDS: Multivitamin W/ Minerals 1 TAB PO SCH (09:04)
[2019-07-05] MEDS: Potassium Chloride 20 MEQ TAB PO SCH (09:05)
[2019-07-05] MEDS: Clopidogrel Bisulfate 75 MG TAB PO SCH (09:05)
[2019-07-05] MEDS: Atorvastatin Calcium 40 MG TAB PO SCH (20:40)
[2019-07-05] MEDS: Losartan Potassium 50 MG TAB PO SCH (20:40)
[2019-07-06] MEDS: Ferrous Sulfate 325 MG TAB PO SCH (10:00)
[2019-07-06] MEDS: Multivitamin W/ Minerals 1 TAB PO SCH (10:00)
[2019-07-06] MEDS: Aspirin 325 mg Enteric Coated Tablet PO SCH (10:00)
[2019-07-06] MEDS: Potassium Chloride 20 MEQ TAB PO SCH (10:00)
[2019-07-06] MEDS: Clopidogrel Bisulfate 75 MG TAB PO SCH (10:00)
[2019-07-06] MEDS: Losartan Potassium 50 MG TAB PO SCH (21:11)
[2019-07-06] MEDS: Atorvastatin Calcium 40 MG TAB PO SCH (21:11)
[2019-07-07] MEDS: Loperamide HCl 2 MG CAP PO PRN ×3 (01:25→22:55)
[2019-07-07] MEDS: Ferrous Sulfate 325 MG TAB PO SCH (07:45)
[2019-07-07] MEDS: Aspirin 325 mg Enteric Coated Tablet PO SCH (07:45)
[2019-07-07] MEDS: Multivitamin W/ Minerals 1 TAB PO SCH (07:46)
[2019-07-07] MEDS: Potassium Chloride 20 MEQ TAB PO SCH (07:46)
[2019-07-07] MEDS: Clopidogrel Bisulfate 75 MG TAB PO SCH (07:46)
[2019-07-07] MEDS: Losartan Potassium 50 MG TAB PO SCH (21:30)
[2019-07-07] MEDS: Atorvastatin Calcium 40 MG TAB PO SCH (21:30)
[2019-07-08] MEDS: Clopidogrel Bisulfate 75 MG TAB PO SCH (08:35)
[2019-07-08] MEDS: Aspirin 325 mg Enteric Coated Tablet PO SCH (08:35)
[2019-07-08] MEDS: Multivitamin W/ Minerals 1 TAB PO SCH (08:35)
[2019-07-08] MEDS: Ferrous Sulfate 325 MG TAB PO SCH (08:35)
[2019-07-08] MEDS: Potassium Chloride 20 MEQ TAB PO SCH (08:35)
[2019-07-08] MEDS: Losartan Potassium 50 MG TAB PO SCH (20:45)
[2019-07-08] MEDS: Atorvastatin Calcium 40 MG TAB PO SCH (20:46)
[2019-07-09] MEDS: Loperamide HCl 2 MG CAP PO PRN (02:04)
[2019-07-09] MEDS: Clopidogrel Bisulfate 75 MG TAB PO SCH (09:10)
[2019-07-09] MEDS: Multivitamin W/ Minerals 1 TAB PO SCH (09:10)
[2019-07-09] MEDS: Ferrous Sulfate 325 MG TAB PO SCH (09:10)
[2019-07-09] MEDS: Aspirin 325 mg Enteric Coated Tablet PO SCH (09:11)
[2019-07-09] MEDS: Potassium Chloride 20 MEQ TAB PO SCH (09:12)
[2019-07-09] MEDS: Atorvastatin Calcium 40 MG TAB PO SCH (20:49)
[2019-07-09] MEDS: Losartan Potassium 50 MG TAB PO SCH (20:49)
[2019-07-10] MEDS: Aspirin 325 mg Enteric Coated Tablet PO SCH (08:45)
[2019-07-10] MEDS: Potassium Chloride 20 MEQ TAB PO SCH (08:45)
[2019-07-10] MEDS: Clopidogrel Bisulfate 75 MG TAB PO SCH (08:46)
[2019-07-10] MEDS: Multivitamin W/ Minerals 1 TAB PO SCH (08:46)
[2019-07-10] MEDS: Ferrous Sulfate 325 MG TAB PO SCH (08:47)
[2019-07-10] MEDS: Losartan Potassium 50 MG TAB PO SCH (20:49)
[2019-07-10] MEDS: Atorvastatin Calcium 40 MG TAB PO SCH (20:49)
[2019-07-11] MEDS: Ferrous Sulfate 325 MG TAB PO SCH (08:29)
[2019-07-11] MEDS: Aspirin 325 mg Enteric Coated Tablet PO SCH (08:29)
[2019-07-11] MEDS: Multivitamin W/ Minerals 1 TAB PO SCH (08:30)
[2019-07-11] MEDS: Clopidogrel Bisulfate 75 MG TAB PO SCH (08:30)
[2019-07-11] MEDS: Potassium Chloride 20 MEQ TAB PO SCH (08:30)
[2019-07-11] MEDS: Atorvastatin Calcium 40 MG TAB PO SCH (20:25)
[2019-07-11] MEDS: Losartan Potassium 50 MG TAB PO SCH (20:25)
[2019-07-12] MEDS: Multivitamin W/ Minerals 1 TAB PO SCH (08:47)
[2019-07-12] MEDS: Ferrous Sulfate 325 MG TAB PO SCH (08:48)
[2019-07-12] MEDS: Potassium Chloride 20 MEQ TAB PO SCH (08:48)
[2019-07-12] MEDS: Clopidogrel Bisulfate 75 MG TAB PO SCH (08:48)
[2019-07-12] MEDS: Aspirin 325 mg Enteric Coated Tablet PO SCH (08:48)
[2019-07-12] MEDS: Losartan Potassium 50 MG TAB PO SCH (20:24)
[2019-07-12] MEDS: Atorvastatin Calcium 40 MG TAB PO SCH (20:24)
[2019-07-13] MEDS: Clopidogrel Bisulfate 75 MG TAB PO SCH (09:39)
[2019-07-13] MEDS: Ferrous Sulfate 325 MG TAB PO SCH (09:39)
[2019-07-13] MEDS: Aspirin 325 mg Enteric Coated Tablet PO SCH (09:39)
[2019-07-13] MEDS: Multivitamin W/ Minerals 1 TAB PO SCH (09:39)
[2019-07-13] MEDS: Potassium Chloride 20 MEQ TAB PO SCH (09:40)
[2019-07-13] MEDS: Losartan Potassium 50 MG TAB PO SCH (20:47)
[2019-07-13] MEDS: Atorvastatin Calcium 40 MG TAB PO SCH (20:47)
[2019-07-14] MEDS: Potassium Chloride 20 MEQ TAB PO SCH (09:14)
[2019-07-14] MEDS: Multivitamin W/ Minerals 1 TAB PO SCH (09:15)
[2019-07-14] MEDS: Ferrous Sulfate 325 MG TAB PO SCH (09:15)
[2019-07-14] MEDS: Clopidogrel Bisulfate 75 MG TAB PO SCH (09:15)
[2019-07-14] MEDS: Aspirin 325 mg Enteric Coated Tablet PO SCH (09:16)
[2019-07-14] MEDS: Loperamide HCl 2 MG CAP PO PRN (21:33)
[2019-07-14] MEDS: Losartan Potassium 50 MG TAB PO SCH (21:33)
[2019-07-14] MEDS: Atorvastatin Calcium 40 MG TAB PO SCH (21:33)
[2019-07-15] MEDS: Potassium Chloride 20 MEQ TAB PO SCH (09:28)
[2019-07-15] MEDS: Ferrous Sulfate 325 MG TAB PO SCH (09:28)
[2019-07-15] MEDS: Aspirin 325 mg Enteric Coated Tablet PO SCH (09:28)
[2019-07-15] MEDS: Clopidogrel Bisulfate 75 MG TAB PO SCH (09:28)
[2019-07-15] MEDS: Multivitamin W/ Minerals 1 TAB PO SCH (09:29)
[2019-07-15] MEDS: Atorvastatin Calcium 40 MG TAB PO SCH (21:17)
[2019-07-15] MEDS: Losartan Potassium 50 MG TAB PO SCH (21:17)
[2019-07-16] MEDS: Potassium Chloride 20 MEQ TAB PO SCH (08:30)
[2019-07-16] MEDS: Multivitamin W/ Minerals 1 TAB PO SCH (08:31)
[2019-07-16] MEDS: Clopidogrel Bisulfate 75 MG TAB PO SCH (08:31)
[2019-07-16] MEDS: Ferrous Sulfate 325 MG TAB PO SCH (08:31)
[2019-07-16] MEDS: Aspirin 325 mg Enteric Coated Tablet PO SCH (08:32)
[2019-07-16] MEDS: Losartan Potassium 50 MG TAB PO SCH (21:16)
[2019-07-16] MEDS: Atorvastatin Calcium 40 MG TAB PO SCH (21:16)
[2019-07-16] MEDS: Loperamide HCl 2 MG CAP PO PRN (22:41)
[2019-07-17 06:03] VITALS: BP 106/63; TEMP 97.9
[2019-07-17] MEDS: Aspirin 325 mg Enteric Coated Tablet PO SCH (08:30)
[2019-07-17] MEDS: Ferrous Sulfate 325 MG TAB PO SCH (08:31)
[2019-07-17] MEDS: Multivitamin W/ Minerals 1 TAB PO SCH (08:31)
[2019-07-17] MEDS: Clopidogrel Bisulfate 75 MG TAB PO SCH (08:32)
[2019-07-17] MEDS: Potassium Chloride 20 MEQ TAB PO SCH (08:32)
--- NOTE | 2019-07-18 03:00 | DIS ---
DATE OF ADMISSION: 07/01/2019 DATE OF DISCHARGE: 07/17/2019 ADMISSION DIAGNOSES: History of cerebrovascular accident with left-sided weakness, hypertension, dyslipidemia, anxiety, depression, history of type 2 diabetes mellitus, and gait instability. PROCEDURES: None. HOSPITAL COURSE: A 64-year-old male who presented to our facility to participate with physical therapy and occupational therapy status post admission at [facility] in [place], where he presented with left-sided weakness resulting in multiple falls in conjunction with fatigue and altered mental status. The patient has a history of CVA with residual left-sided weakness. Workup included bilateral carotid ultrasound showing no significant stenoses. He also had an echocardiogram showing diastolic dysfunction with an ejection fraction of 50% to 60%, and no other significant findings. The patient was consulted by Neurology , Dr. Cerna, via telemedicine. The patient's mentation returned back to his baseline. However, due to his gait instability with left-sided weakness, he was transitioned to a swing bed status here, for both PT and OT. The patient gradually improved during his stay here in regard to his functional status. He did have episodes of orthostatic hypotension prompting a decrease of his losartan from 100 mg to 50 mg. Other than this, he had no significant setbacks and has met the criteria to be able to discharge back to his home setting. The patient will be living with his son and in addition to this, will have [facility] to further aid his transition of care. DISPOSITION: The patient will be discharged to live with his son and have [facility]. He may follow up with myself in the clinic next week. DISCHARGE MEDICATIONS: Include: 1. Zoloft 25 mg daily. 2. Potassium chloride 20 mEq daily. 3. Daily multivitamin. 4. Losartan 50 mg at bedtime. 5. Aspirin 325 mg daily. 6. Plavix 75 mg daily. 7. Lipitor 40 mg at bedtime. Job ID: [id number] [facility]
== END 2019-07-17 10:00 | disposition home or self-care (01) | DRG 57 ==
LOC: BURMED 07-01 17:20
PROVIDERS: ADMIT Family Medicine; ATTEND Family Medicine
DX: I69.954 Hemiplegia and hemiparesis following unspecified cerebrovascular disease affecting left non-dominant side (principal); E11.9 Type 2 diabetes mellitus without complications; E78.5 Hyperlipidemia, unspecified; I10 Essential (primary) hypertension; F17.220 Nicotine dependence, chewing tobacco, uncomplicated; F32.9 Major depressive disorder, single episode, unspecified; F41.9 Anxiety disorder, unspecified; Z79.82 Long term (current) use of aspirin; Z79.02 Long term (current) use of antithrombotics/antiplatelets
CPT/HCPCS: 36416

== ENCOUNTER 2020-09-09 10:11 | Emergency (ER) | payer MEDICARE, MEDICAID ==
[2020-09-09 10:56] LABS: #Eosinphils 0.1 thou/uL (0.0-0.7); #Lymphocytes 0.6 thou/uL (1.20-3.40); #Monocytes 0.5 thou/uL (0.11-0.59); #Neutrophils 6.4 thou/uL (1.40-6.50); %Basophils 0.5 % (0.0-1.0); %Eosinophils 1.3 % (0.0-10.0); %Lymphocytes 8.3 % (21.0-51.0); %Monocytes 6.4 % (0.0-10.0); %Neutrophils 83.6 % (42.0-75.0); Hemoglobin 10.4 g/dL (14.0-18.0); Mean Corpuscular HGB CONC 32.1 g/dL (32.0-36.0); Mean Corpuscular Hemoglobin 30.6 pg (27.0-31.0); Mean Corpuscular Volume 95.6 fL (78.0-98.0); Mean Platelet Volume 9.1 fL (7.4-10.4); Platelet Count 154 thou/uL (130-400); Red Blood Cell (RBC) Count 3.41 mill/uL (4.70-6.10); White Blood Cell (WBC) Count 7.7 thou/uL (4.8-10.8)
[2020-09-09 11:12] LABS: ALT (SGPT) 24 U/L (8-55); AST (SGOT) 21 U/L (5-34); Albumin 2.7 g/dL (3.4-4.8); Alkaline Phosphatase 208 U/L (40-110); Anion Gap 15 mmol/L (10-20); BUN (Urea Nitrogen) 30 mg/dL (8.4-25.7); Bilirubin, Total 0.8 mg/dL (0.2-1.2); Calc. Creatinine Clearance 0 mL/min (70-130); Calcium 7.8 mg/dL (7.8-10.44); Carbon Dioxide 22 mmol/L (23-31); Chloride 108 mmol/L (98-107); Estimated GFR-MDRD 32; Globulin 2.8 g/dL (2.4-3.5); Glucose 135 mg/dL (80-115); Potassium 4.5 mmol/L (3.5-5.1); Protein, Total 5.5 g/dL (5.8-8.1); Sodium 140 mmol/L (136-145)
[2020-09-09] MEDS ORDERED: Aspirin Chewable 81 MG TAB ONE (11:42)
[2020-09-09] MEDS ORDERED: Sodium Chloride 0.9% 100 ML ONE (11:42)
[2020-09-09] MEDS ORDERED: cefTRIAXone\\ROCEPHIN 2 GM VIAL ONE (11:42)
[2020-09-09] MEDS ORDERED: Clindamycin/D5W 600 mg/50 ml Premix Bag ONE (11:42)
[2020-09-09] MEDS ORDERED: Aspirin 300 MG Suppository ONE (12:21)
--- NOTE | 2020-09-09 15:42 | RAD ---
PORTABLE CHEST: DATE: 09/09/2020. FINDINGS: An AP portable film at 1058 is compared with a 08/09/2020 study. The heart is normal in size and the lungs are clear. No acute infiltrate or significant effusion was seen. There is no congestion of the pulmonary vessels today. The mediastinum appears normal. IMPRESSION: No acute finding. POS: HOME
== END 2020-09-09 13:57 | disposition short-term general hospital (02) ==
LOC: BURERS 10:11
DX: J18.9 Pneumonia, unspecified organism (principal); R00.1 Bradycardia, unspecified; D64.9 Anemia, unspecified; I12.0 Hypertensive chronic kidney disease with stage 5 chronic kidney disease or end stage renal disease; E11.22 Type 2 diabetes mellitus with diabetic chronic kidney disease; N18.5 Chronic kidney disease, stage 5; E78.5 Hyperlipidemia, unspecified; E78.00 Pure hypercholesterolemia, unspecified; N40.0 Benign prostatic hyperplasia without lower urinary tract symptoms; Z86.73 Personal history of transient ischemic attack (TIA), and cerebral infarction without residual deficits
CPT/HCPCS: 51701; 71045; 80053; 83605; 83880; 84484; 85025; 87040; 87149; 93005; 96365; J0696; J3490